=== PATIENT | female | born 1955 | race American Indian/Alaskan Native ===

== ENCOUNTER 2017-05-15 11:15 | Outpatient (CLI) | payer MEDICARE ==
--- NOTE | 2017-05-15 12:34 | Cat Scan Report ---
CT chest without contrast: Followup abnormal chest CT. History of cancer although not specified on history. Unenhanced images are obtained through the chest with coronal and sagittal 2-D reformatted images. Comparison is made to prior CT chest on February 08, 2017. As noted on prior examination there is an area of inhomogeneous density in the anterior segment left upper lobe currently identified on image 27 of series 2. This is relatively unchanged from prior study but appears slightly less solid. In the anterior segment of the right upper lobe is a 4.5 mm noncalcified circumscribed density which is also identified on the prior scan on image 67 of series 2. This is also unchanged. The previously noted bibasilar atelectasis is no longer identified. There is a 14 mm lymph node in the aorticopulmonary window which is unchanged. Some scattered shotty adenopathy is otherwise noted in the mediastinum as well as in both axillary regions. Impressions: Bilateral stable pulmonary densities. Recommendation: Repeat CT without contrast in 6 months recommended to confirm stability.
== END 2017-05-15 11:16 | disposition home or self-care (01) ==
LOC: CT 11:15
PROVIDERS: ATTEND Specialist
DX: R91.1 Solitary pulmonary nodule (principal); R59.9 Enlarged lymph nodes, unspecified; I10 Essential (primary) hypertension; E78.5 Hyperlipidemia, unspecified; F17.200 Nicotine dependence, unspecified, uncomplicated; Z85.118 Personal history of other malignant neoplasm of bronchus and lung
CPT/HCPCS: 71250